=== PATIENT | male | born 1955 | race Caucasian/White ===

== ENCOUNTER → 2017-10-29 11:11 | Outpatient (CLI) | payer BC, SELFPAY ==
--- NOTE | 2017-10-29 | DI.US.S_ITS ---
PROCEDURE: US CAROTID DOPPLER BI INDICATIONS: CAROTID VASCULAR DISEASE TECHNIQUE: Color and pulse Doppler interrogation was performed of both carotid systems, with image documentation and velocity measurements. COMPARISON: None. FINDINGS: Stenosis calculations are based on SRU (Society of Radiologists in Ultrasound) criteria. Right side: Brachial blood pressure: 128/80 mm Hg. Common carotid artery peak systolic velocity: 70 cm/sec. Internal carotid artery peak systolic velocity: 63 cm/sec. Internal carotid artery end diastolic velocity: 16 cm/sec. External carotid artery peak systolic velocity: 109 cm/sec. ICA/CCA peak systolic ratio: 0.8 Ewing scale imaging description: Minimal plaque. Percent internal carotid artery stenosis: Less than 50%. Vertebral artery: Flow direction is antegrade. Left side: Brachial blood pressure: 130/84 mm Hg. Common carotid artery peak systolic velocity: 76 cm/sec. Internal carotid artery peak systolic velocity: 85 cm/sec. Internal carotid artery end diastolic velocity: 26 cm/sec. External carotid artery peak systolic velocity: 119 cm/sec. ICA/CCA peak systolic ratio: 1.1. Ewing scale imaging description: Moderate scattered plaque. Percent internal carotid artery stenosis: Less than 50%. Vertebral artery: Flow direction is antegrade. IMPRESSION: Less than 50% bilateral internal carotid artery stenosis. Dictated by: Driss Chang [facility] Interpreted: Savita Estrada MD on 10/29/2017 at 12:01 Approved by: Savita Estrada M.D. on 10/29/2017 at 14:16
== END ==
PROVIDERS: PCP Internal Medicine; Visit Provider Internal Medicine
DX: I99.8 Other disorder of circulatory system (principal)
CPT/HCPCS: 93880

== ENCOUNTER → 2018-08-28 09:24 | Outpatient (CLI) | payer BC, SELFPAY ==
[2018-08-28 10:26] LABS: Alanine Aminotransferase 52 IU/L (21-72); Albumin 4.5 g/dL (3.5-5.0); Albumin Globulin Ratio 1.6 (1.0-2.8); Alkaline Phosphatase 64 U/L (38-126); Aspartate Aminotransferase 35 IU/L (17-59); Bilirubin Total 0.9 mg/dL (0.2-1.3); Blood Urea Nitrogen 24 mg/dL (9-20); Calcium 9.7 mg/dL (8.4-10.2); Carbon Dioxide 27 mmol/L (22-32); Chloride 104 mmol/L (98-107); Cholesterol 122 mg/dL (140-199); Estimated Glomerular Filt Rate > 60.0 mL/min (>60); Globulin 2.8 g/dL (1.7-4.1); Glucose 101 mg/dL (80-110); HDL Cholesterol 49 mg/dL (40-60); HEMOLYSIS < 15 (0-50); LDL Cholesterol Calculated 57 mg/dL (<100); Potassium 4.4 mmol/L (3.4-5.1); Sodium 140 mmol/L (137-145); Total Protein 7.3 g/dL (6.3-8.2); Triglycerides 80 mg/dL (35-150)
== END ==
PROVIDERS: PCP Internal Medicine; Visit Provider Internal Medicine Cardiovascular Disease
DX: I25.118 Atherosclerotic heart disease of native coronary artery with other forms of angina pectoris (principal); E78.00 Pure hypercholesterolemia, unspecified
CPT/HCPCS: 36415; 80053; 80061

== ENCOUNTER 2019-06-24 08:53 | Day surgery (SDC) | payer OTHER, SELFPAY ==
[2019-06-24] VITALS (8 sets, daily range): BP systolic 110–131; BP diastolic 58–84; PULSE 58–69; RESP 10–16; TEMP 36.5–36.9; O2SAT 94–99; BMI 26.9
[2019-06-24] MEDS: SODIUM CHLORIDE 0.9% 1,000 ML 200 ML IV (09:33)
--- NOTE | 2019-06-24 10:09 | PM.HP.1 ---
History of Present Illness History of Present Illness Date Patient Seen: 06/24/19 Time Patient Seen: 10:09 Chief complaint: [id number] Narrative: The patient is a gentleman with a history of a colon resection for diverticulitis. He had a colonoscopy 5 years ago and polyps were removed. He is here for screening exam. Patient History Medical History (Updated 06/24/19 @ 10:10 by Christian Song MD) Diverticulitis (Acute) Enlarged prostate (Acute) Hernia (Acute) Surgical History H/O hernia repair (Acute) H/O partial resection of colon (Acute) Family & Social History Social History: household members spouse Meds Home Medications and Allergies Home Medications Medication Instructions Recorded Confirmed Type amlodipine 5 mg PO DAILY 06/24/19 06/24/19 History aspirin 81 mg PO DAILY 06/24/19 06/24/19 History atorvastatin 40 mg PO BEDTIME 06/24/19 06/24/19 History coenzyme Q10 [CoQ-10] 200 mg PO DAILY 06/24/19 06/24/19 History Allergies Allergy/AdvReac Type Severity Reaction Status Date / Time No Known Drug Allergies Allergy Verified 06/24/19 09:16 Review of Systems Review of Systems ROS Unobtainable: All systems reviewed & are unremarkable except as noted in HPI and below Cardiovascular Comments: Does have coronary artery disease of minor vessels. Had an angiogram. Main vessels are patent. No stents were placed. He is asymptomatic. Exam Vital Signs (past 8 hours): - 06/24/19 09:16 Temperature 97.8 F Pulse Rate 61 Respiratory Rate 15 Blood Pressure 131/84 Pulse Oximetry 99 Oxygen Delivery Method Room Air Narrative Exam Narrative: Pleasant cooperative patient no apparent distress. Lungs are clear to auscultation. No rales or rhonchi. Heart regular rate and rhythm no murmur gallop. Abdomen is soft nontender without mass. No obvious hernias. Patient is alert and oriented x3. Assessment & Plan Assessment & Plan narrative: The patient for a screening colonoscopy. I have discussed the procedure with them. Risks of bleeding, perforation which would necessitate major operation, failure to find remove all lesions, the potential tattoo were all discussed. All questions were answered. They wished to proceed.
--- NOTE | 2019-06-24 10:11 | PM.PREOP ---
Pre-operative Note Interval Note History & Physical reviewed/Exam performed by Physician: Yes Changes to H&P: No ASA Class (for procedural sedation): II
--- NOTE | 2019-06-24 10:21 | PM.PREOP ---
Pre-operative Note Interval Note History & Physical reviewed/Exam performed by Physician: Yes Changes to H&P: No ASA Class (for procedural sedation): II
[2019-06-24] MEDS: MIDAZOLAM 5 MG/5 ML VIAL IV (10:39)
--- NOTE | 2019-06-24 10:39 | PM.OP.ENDO ---
Operative Date/Time/Diagnoses Date of procedure: 06/24/19 Time of procedure: 10:39 Pre-op diagnosis: Screening exam. Last exam 5 5 years ago. History of polyps. Post-op diagnosis: same (Diverticulosis left colon) Procedure & Clinicians Study performed: Colonoscopy Same procedure as scheduled: Yes Indications: Screening Surgeon: Christian Song Procedure Notes SCOAP/Timeout: Perform Procedure in detail: The patient was placed in the left lateral decubitus position and underwent IV sedation directed by the surgeon consisting of fentanyl and Versed. Digital exam was remarkable for an enlarged prostate. The scope was inserted and advanced through the rectum into the sigmoid, descending, transverse, and ascending colon. Diverticulosis was noted in the area where the sigmoid would have been.. The cecum was reached identified by the ileocecal valve and the appendiceal opening. The ileocecal valve was successfully cannulated. The terminal ileum was normal in appearance. The scope was gradually brought out. No Polyps were found. The scope ultimately was retroflexed in the rectum. The appearance was normal. The scope was removed and the patient tolerated the procedure well. Prep was excellent. Anastomosis was noted at approximately 15 cm. Diverticuli were noted in the area of anastomosis as well as proximal to it. Chem or malfunction so no pictures were able to be taken Scope withdrawal time: 7 minutes Sedation minutes: 16 Findings: diverticulosis Specimen(s): none sent Post-procedure Recommendations: Colonscopy in 5 years (Due to history of polyps) Follow up: as needed Disposition: PACU
[2019-06-24] MEDS: fentaNYL 250 MCG/5 ML INJ IV (10:40)
[2019-06-24] MEDS: ONDANSETRON 4 MG/2 ML INJ IV (11:26)
--- NOTE | 2019-06-24 11:31 | SUR.PHASEII ---
Pt brought to opd, c/o nausea. Dr. Baldwin made aware, order obtained for ondansetron, med given. Mitul vasquez at bedside as well.
--- NOTE | 2019-06-24 12:18 | SUR.PHASEII ---
late entry: Pt no longer nauseated after med given. brought in, d/c instructions discussed, all voiced an understanding. P{t left when ready and left in stable condition.
== END 2019-06-24 12:10 | disposition home or self-care (01) ==
PROVIDERS: PCP Internal Medicine; Visit Provider Specialist
PROC: 0DJD8ZZ Inspection of Lower Intestinal Tract, Via Natural or Artificial Opening Endoscopic (ICD-10-PCS; CPT 45378; principal; 2019-06-24 09:45)
DX: Z12.11 Encounter for screening for malignant neoplasm of colon (principal); Z86.010 Personal history of colon polyps; K57.30 Diverticulosis of large intestine without perforation or abscess without bleeding; N40.0 Benign prostatic hyperplasia without lower urinary tract symptoms
CPT/HCPCS: 45378; 99152; J2250; J2405; J3010

== ENCOUNTER → 2019-10-21 09:13 | Outpatient (CLI) | payer OTHER, SELFPAY ==
[2019-10-21 10:44] LABS: Add Manual Diff / Slide Review NO; Basophils Absolute Auto 0 /uL (0-100); Basophils Percent Auto 0.6 % (0-2); Eosinophils Absolute Auto 100 /uL (0-450); Eosinophils Percent Auto 1.6 % (2-4); Hematocrit 42.7 % (41-53); Hemoglobin 15.1 g/dL (13.5-17.5); Lymphocytes Absolute Auto 1600 /uL (1100-4500); Lymphocytes Percent Auto 33.6 % (25-40); Mean Corpuscular HGB Conc 35.4 % (30-36); Mean Corpuscular Hemoglobin 32.2 PG (26-34); Mean Corpuscular Volume 91.1 fL (80-100); Monocytes Absolute Auto 400 /uL (0-900); Monocytes Percent Auto 9.1 % (3-14); Neutrophils Absolute Auto 2600 /uL (1500-7000); Neutrophils Percent Auto 55.1 % (50-75); Platelet Count 183 X10^3/uL (150-400); Red Blood Cell Count 4.69 X10^6/uL (4.5-5.9); Red Cell Distribution Width 12.7 % (11.6-14.8); White Blood Cell Count 4.8 X10^3/uL (4.5-11.0)
[2019-10-21 10:51] LABS: Alanine Aminotransferase 40 IU/L (<50); Albumin 4.8 g/dL (3.5-5.0); Albumin Globulin Ratio 1.8 (1.0-2.8); Alkaline Phosphatase 68 U/L (38-126); Aspartate Aminotransferase 47 IU/L (17-59); BUN Creatinine Ratio 22.6 (6-22); Bilirubin Total 1.2 mg/dL (0.2-1.3); Blood Urea Nitrogen 21 mg/dL (9-20); Calcium 10.1 mg/dL (8.4-10.2); Carbon Dioxide 25 mmol/L (22-32); Chloride 107 mmol/L (98-107); Cholesterol 140 mg/dL (140-199); Estimated Glomerular Filt Rate > 60.0 mL/min (>60); Globulin 2.7 g/dL (1.7-4.1); Glucose 105 mg/dL (80-110); HDL Cholesterol 56 mg/dL (40-60); HEMOLYSIS < 15 (0-50); LDL Cholesterol Calculated 67 mg/dL (<100); Potassium 4.7 mmol/L (3.4-5.1); Sodium 141 mmol/L (137-145); Total Protein 7.5 g/dL (6.3-8.2); Triglycerides 87 mg/dL (35-150)
== END ==
PROVIDERS: PCP Internal Medicine; Referring Provider Internal Medicine; Visit Provider Internal Medicine
DX: I10 Essential (primary) hypertension (principal); E78.00 Pure hypercholesterolemia, unspecified; N52.9 Male erectile dysfunction, unspecified
CPT/HCPCS: 36415; 80053; 80061; 85025

== ENCOUNTER → 2019-12-16 09:51 | Outpatient (CLI) | payer OTHER, SELFPAY ==
[2019-12-16 11:46] LABS: Cholesterol 202 mg/dL (140-199); HDL Cholesterol 47 mg/dL (40-60); LDL Cholesterol Calculated 126 mg/dL (<100); Triglycerides 145 mg/dL (35-150)
== END ==
PROVIDERS: PCP Internal Medicine; Referring Provider Internal Medicine; Visit Provider Internal Medicine
DX: I10 Essential (primary) hypertension (principal); E78.00 Pure hypercholesterolemia, unspecified; N52.9 Male erectile dysfunction, unspecified
CPT/HCPCS: 36415; 80061

== ENCOUNTER → 2020-02-14 12:16 | Outpatient (CLI) | payer OTHER, SELFPAY ==
--- NOTE | 2020-02-14 | DI.RAD.S_ITS ---
PROCEDURE: XR LUMBAR SPINE 2-3V INDICATIONS: LUMBAR DISK DISEASE TECHNIQUE: 2 views of the lumbar spine were acquired. COMPARISON: None. FINDINGS: Bones: 6 [id number] vertebrae are present. There is normal bony alignment. No acute vertebral body compression fractures. Multilevel lumbar spondylitic changes of the mid lower lumbar spine with degenerative endplate changes and mild facet arthropathy. No suspicious bony lesions. Soft tissues: Overlying bowel gas pattern is normal. No suspicious soft tissue calcifications. IMPRESSION: Lumbar spine without acute osseous abnormalities. Multilevel lumbar spondylosis. Dictated by: Clarke Bunch M.D. on 02/14/2020 at 18:05 Approved by: Clarke Bunch M.D. on 02/14/2020 at 18:07
== END ==
PROVIDERS: PCP Internal Medicine; Referring Provider Internal Medicine; Visit Provider Physician Assistant
DX: M51.9 Unspecified thoracic, thoracolumbar and lumbosacral intervertebral disc disorder (principal); M47.816 Spondylosis without myelopathy or radiculopathy, lumbar region
CPT/HCPCS: 72100

== ENCOUNTER → 2020-03-01 08:40 | Outpatient (CLI) | payer OTHER, SELFPAY ==
[2020-03-01 09:58] LABS: Cholesterol 176 mg/dL (140-199); HDL Cholesterol 55 mg/dL (40-60); LDL Cholesterol Calculated 98 mg/dL (<100); Triglycerides 116 mg/dL (35-150)
== END ==
PROVIDERS: PCP Internal Medicine; Referring Provider Internal Medicine; Visit Provider Internal Medicine
DX: I10 Essential (primary) hypertension (principal); E78.00 Pure hypercholesterolemia, unspecified; N52.9 Male erectile dysfunction, unspecified
CPT/HCPCS: 36415; 80061

== ENCOUNTER → 2020-03-13 13:02 | Outpatient (CLI) | payer OTHER, SELFPAY ==
--- NOTE | 2020-03-13 | DI.MRI.S_ITS ---
PROCEDURE: MR LUMBAR SPINE WO CON INDICATIONS: lumbosacral intervertebral disc disorder TECHNIQUE: Noncontrast sagittal T1 spin echo and T2 fast echo, sagittal STIR, axial T1 and T2 fast spin echo through the lumbar spine. In cases with scoliosis, additional coronal T2 fast spin echo may be performed. COMPARISON: None. FINDINGS: Image quality: Excellent. Alignment and Curvature: There is normal bony alignment. Bone Marrow: Multilevel degenerative endplate sclerosis and spurring. Diffuse facet arthropathy. No fracture Spinal Cord: Conus medullaris terminates at the L1-L2 level. Visualized cord demonstrates normal signal and size. Paraspinous Soft Tissues: No paravertebral masses. L1-L2: No canal or right foraminal stenosis. Mild left foraminal narrowing. L2-L3: Mild canal narrowing. Partial effacement of both lateral recesses with bilaterally symmetric appearance. Mild right foraminal narrowing. Mild to moderate left foraminal stenosis with questionable nerve root compression L3-L4: Minimal canal narrowing. Partial effacement of both lateral recesses with bilaterally symmetric appearance. Minimal right foraminal narrowing. Mild left foraminal stenosis with questionable nerve root compression L4-L5: Normal appearance. L5-S1: Normal appearance. IMPRESSION: Mild L2-L3 canal narrowing. Diffuse mild to moderate bilateral foraminal stenosis as detailed above. Dictated by: Efe Lee M.D. on 03/13/2020 at 14:28 Approved by: Efe Lee M.D. on 03/13/2020 at 14:33
== END ==
PROVIDERS: PCP Internal Medicine; Referring Provider Internal Medicine; Visit Provider Internal Medicine
DX: M51.9 Unspecified thoracic, thoracolumbar and lumbosacral intervertebral disc disorder (principal); M48.061 Spinal stenosis, lumbar region without neurogenic claudication
CPT/HCPCS: 72148

== ENCOUNTER → 2020-03-23 09:08 | Outpatient (CLI) | payer OTHER, SELFPAY ==
[2020-03-23 11:10] LABS: Testosterone 502 ng/dL (71.8-623)
== END ==
PROVIDERS: PCP Internal Medicine; Referring Provider Internal Medicine; Visit Provider Internal Medicine
DX: N52.8 Other male erectile dysfunction (principal)
CPT/HCPCS: 36415; 84403

== ENCOUNTER → 2020-07-07 12:19 | Outpatient (CLI) | payer OTHER, SELFPAY ==
[2020-07-07] MEDS: COVID-19 VACC #1, MRNA(MOD) 100 MCG/0.5 ML VIAL IM (12:29)
== END ==
PROVIDERS: PCP Internal Medicine; Visit Provider Internal Medicine
DX: Z23 Encounter for immunization (principal)
CPT/HCPCS: 0011A; 91301

== ENCOUNTER → 2020-08-04 12:53 | Outpatient (CLI) | payer MEDICARE, SELFPAY ==
[2020-08-04] MEDS: COVID-19 VACC #2, MRNA(MOD) 100 MCG/0.5 ML VIAL IM (13:05)
== END ==
PROVIDERS: PCP Internal Medicine; Visit Provider Internal Medicine
DX: Z23 Encounter for immunization (principal)
CPT/HCPCS: 0012A; 91301

== ENCOUNTER → 2021-11-19 06:45 | Outpatient (CLI) | payer MEDICARE, OTHER, SELFPAY ==
--- NOTE | 2021-11-19 06:49 | DI.ECHO.S_ITS ---
[place] +---------+ Hospital +---------+ : : [address] : : : : [id number] : : : : Phone: [phone]+ Echocardiogram Report + + :Name: MARIA G CHRIS Study Date: 11/19/2021 Height: 69 in : :[facility] ReadingLocation: Weight: 185 lb : : Gender: Male BSA: 2.0 m2 : :: 1955 Age: 66 yrs BP: 141/83 mmHg: :Reason For Study: CAD : :Ordering Physician: WILLIAM, : :GABRIELA Performed By: Khang Ruiz : :Referring: GABRIELA CARPENTER : + + Interpretation Summary 1) Normal left ventricular size and thickness with low normal systolic function (EF 50-55%). 2) Normal right ventricular size and function. 3) There is mild aortic regurgitation. 4) No prior Echo available for comparison. Procedure: A two-dimensional transthoracic echocardiogram with color flow and Doppler was performed. The study quality was technically adequate. There is no prior echocardiogram noted for this patient. The patient was in normal sinus rhythm during the exam. Left Ventricle: The left ventricle is normal in size and wall thickness. Left ventricular systolic function is low normal. The ejection fraction is estimated to be 50-55%. There are no focal wall motion abnormalities. Diastolic function could not be accurately assessed due to unobtainable data. Right Ventricle: The right ventricle is normal in size and function. Atria: Both atria are normal in size. The interatrial septum grossly appears intact with no obvious evidence for an atrial septal defect. Mitral Valve: The mitral valve is normal in structure and function. There is trace mitral regurgitation. Aortic Valve: The aortic valve is normal in structure and function. There is no aortic valve stenosis. There is mild aortic regurgitation. Tricuspid Valve: The tricuspid valve is normal in structure and function. There is a trace or physiologic amount of tricuspid regurgitation. Pulmonary artery pressures cannot be estimated because of the lack of a measurable TR jet velocity. Pulmonic Valve: The pulmonic valve is not well visualized. There is a trace or physiologic amount of pulmonic regurgitation. Great Vessels: The aortic root is normal size. The ascending aorta could not be visualized. The IVC is of normal diameter and collapses greater than 50% with a sniff. This suggests a low right atrial pressure of 3 mm Hg. Pericardium/ Pleura There is no pericardial effusion. There is no pleural effusion. MMode/2D Measurements & Calculations LVIDd: 5.4 cm LVOT diam: 2.3 cm LVIDs: 3.8 cm Ao root diam: 3.3 cm FS: 29.6 % IVSd: 0.90 cm LVPWd: 0.90 cm LV dockery. diameter/BSA (cm/m^2): 2.7 LV sys. diameter/BSA (cm/m^2): 1.9 LA dimension: 3.6 cm RA long axis: 5.3 cm LA A2 area: 21.2 cm2 LA A4 area: 17.9 cm2 LA length (vol): 5.5 cm LA vol: 58.8 ml LA vol index: 29.4 ml/m2 LVLs ap4: 7.6 cm LVLd ap2: 8.6 cm LVLs ap2: 7.8 cm TAPSE_phl: 3.1 cm Doppler Measurements & Calculations Ao V2 max: 121.0 cm/sec LVOT Max Alex: 79.0 cm/sec Ao V2 mean: 88.8 cm/sec LV V1 max P.5 mmHg Ao max P.0 mmHg LV V1 VTI: 17.9 cm Ao mean P.0 mmHg LYNN(I,D): 2.8 cm2 Ao V2 VTI: 26.9 cm LYNN(V,D): 2.7 cm2 sev ratio: 0.67 LYNN indexed to BSA (cm^2/m^2): 1.4 MV E max alex: 62.4 cm/sec SV(LVOT): 74.4 ml MV A max alex: 59.6 cm/sec MV E/A: 1.0 Med Peak E' Alex: 6.3 cm/sec E/E' med: 9.9 Lat Peak E' Alex: 9.7 cm/sec E/E' lat: 6.4 E/e' average: 8.2 MV dec time: 0.25 sec AV VR_phl: 0.65 MV P1/2t-pr_phl: 74.5 msec LYNN(VTI)/BSA_phl: 1.4 Reading Physician:11:31 AM
--- NOTE | 2021-11-19 06:49 | DI.US.S_ITS ---
PROCEDURE: US CAROTID DOPPLER BI INDICATIONS: CAD TECHNIQUE: Color and pulse Doppler interrogation was performed of both carotid systems, with image documentation and velocity measurements. COMPARISON: [facility], , US CAROTID DOPPLER BI, 10/29/2017, 11:35. FINDINGS: Stenosis calculations are based on SRU (Society of Radiologists in Ultrasound) criteria. The flow velocities and the arterial waveforms are normal within both carotid arterial systems. Atherosclerotic plaque is seen on both sides, left worse than right. The estimated degree of internal carotid artery stenosis is less than 50%. Antegrade flow is confirmed within both vertebral arteries. IMPRESSION: No hemodynamically significant stenosis is seen. Study similar to 2018. Dictated by: Merrill Middleton M.D. on 11/19/2021 at 8:23 Approved by: Merrill Middleton M.D. on 11/19/2021 at 8:24
== END ==
PROVIDERS: PCP Family Medicine; Referring Provider Internal Medicine Cardiovascular Disease; Visit Provider Internal Medicine Cardiovascular Disease
DX: I35.1 Nonrheumatic aortic (valve) insufficiency (principal); I25.10 Atherosclerotic heart disease of native coronary artery without angina pectoris
CPT/HCPCS: 93306; 93880

== ENCOUNTER → 2021-12-27 08:50 | Outpatient (CLI) | payer MEDICARE, OTHER, SELFPAY ==
[2021-12-27 11:07] LABS: Cholesterol 131 mg/dL (140-199); HDL Cholesterol 55 mg/dL (40-60); LDL Cholesterol Calculated 59 mg/dL (<100); Triglycerides 83 mg/dL (35-150)
== END ==
PROVIDERS: PCP Family Medicine; Referring Provider Internal Medicine Cardiovascular Disease; Visit Provider Internal Medicine Cardiovascular Disease
DX: E78.5 Hyperlipidemia, unspecified (principal)
CPT/HCPCS: 36415; 80061

== ENCOUNTER → 2022-08-26 15:15 | Outpatient (CLI) | payer MEDICARE, OTHER, SELFPAY ==
--- NOTE | 2022-08-26 | DI.RAD.S_ITS ---
PROCEDURE: XR LUMBAR SPINE 2-3V INDICATIONS: l/s spine pain TECHNIQUE: 3 views of the lumbar spine were acquired. COMPARISON: [facility], CR, XR LUMBAR SPINE 2-3V, 02/14/2020, 12:42. FINDINGS: Bones: Six [id number] vertebrae are present. There is stable bony alignment with minor asymmetric disc height loss at L3-4 and L4-5 with trace retrolisthesis. Mild endplate osteophytes. No vertebral body compression fractures. No suspicious bony lesions. Soft tissues: Overlying bowel gas pattern is normal. No suspicious soft tissue calcifications. IMPRESSION: 1. Stable mild spondylosis and listhesis at L3-4 and L4-5. 2. No significant acute changes compared to the prior study. Dictated by: Ely Riley M.D. on 08/27/2022 at 0:16 Approved by: Ely Riley M.D. on 08/27/2022 at 0:19
== END ==
PROVIDERS: PCP Family Medicine; Referring Provider Family Medicine; Visit Provider Family Medicine
DX: M47.816 Spondylosis without myelopathy or radiculopathy, lumbar region (principal); M43.16 Spondylolisthesis, lumbar region; M54.50 Low back pain, unspecified
CPT/HCPCS: 72100

== ENCOUNTER → 2022-12-16 07:18 | Outpatient (CLI) | payer MEDICARE, OTHER, SELFPAY ==
[2022-12-16 08:25] LABS: Creatine Kinase 294 U/L (55-170)
== END ==
PROVIDERS: PCP Family Medicine; Referring Provider Family Medicine; Visit Provider Family Medicine
DX: M79.10 Myalgia, unspecified site (principal)
CPT/HCPCS: 36415; 82550

== ENCOUNTER → 2023-01-01 07:01 | Outpatient (CLI) | payer MEDICARE, OTHER, SELFPAY ==
[2023-01-01 10:08] LABS: Add Manual Diff / Slide Review NO; Basophils Absolute Auto 0 /uL (0-100); Basophils Percent Auto 0.8 % (0-2); Eosinophils Absolute Auto 100 /uL (0-450); Eosinophils Percent Auto 2.1 % (2-4); Hemoglobin 14.7 g/dL (13.5-17.5); Lymphocytes Absolute Auto 2400 /uL (1100-4500); Mean Corpuscular Hemoglobin 31.8 PG (26-34); Mean Corpuscular Volume 90.9 fL (80-100); Monocytes Absolute Auto 400 /uL (0-900); Monocytes Percent Auto 8.5 % (3-14); Neutrophils Absolute Auto 2000 /uL (1500-7000); Neutrophils Percent Auto 40.6 % (50-75); Platelet Count 178 X10^3/uL (150-400); Red Blood Cell Count 4.62 X10^6/uL (4.5-5.9); Red Cell Distribution Width 12.9 % (11.6-14.8)
[2023-01-01 10:14] LABS: BUN Creatinine Ratio 24.7 (6-22); Blood Urea Nitrogen 24 mg/dL (9-20); Calcium 9.1 mg/dL (8.4-10.2); Carbon Dioxide 27 mmol/L (22-32); Chloride 104 mmol/L (98-107); Cholesterol 186 mg/dL (140-199); Estimated Glomerular Filt Rate > 60 mL/min (>60); Glucose 86 mg/dL (80-110); HDL Cholesterol 54 mg/dL (40-60); HEMOLYSIS 21 (0-50); LDL Cholesterol Calculated 110 mg/dL (<100); Potassium 4.7 mmol/L (3.4-5.1); Sodium 136 mmol/L (137-145); Triglycerides 112 mg/dL (35-150)
== END ==
PROVIDERS: PCP Family Medicine; Referring Provider Internal Medicine Cardiovascular Disease; Visit Provider Internal Medicine Cardiovascular Disease
DX: E78.5 Hyperlipidemia, unspecified (principal); I25.10 Atherosclerotic heart disease of native coronary artery without angina pectoris
CPT/HCPCS: 36415; 80048; 80061; 85025

== ENCOUNTER → 2024-04-20 11:03 | Outpatient (CLI) | payer MEDICARE, OTHER, SELFPAY ==
--- NOTE | 2024-04-20 11:06 | DI.RAD.S_ITS ---
PROCEDURE: XR CHEST 2V INDICATIONS: CHEST TIGHTNESS TECHNIQUE: 2 views of the chest were acquired. COMPARISON: None. FINDINGS: Surgical changes and devices: Cervical spinal fusion hardware is present. Lungs and pleura: Lungs are clear. No pleural effusions or pneumothorax. Mediastinum: Mediastinal contours are normal. Heart size is normal. Bones and chest wall: No suspicious bony abnormalities. Soft tissues appear unremarkable. IMPRESSION: No acute cardiopulmonary abnormality is seen. Approved by: Morris Hernandez M.D. on 04/21/2024 at 8:24
== END ==
LOC: RAD 11:05
PROVIDERS: PCP Family Medicine; Referring Provider Family Medicine; Visit Provider Family Medicine
DX: R07.89 Other chest pain (principal); Z98.1 Arthrodesis status
CPT/HCPCS: 71046

== ENCOUNTER → 2024-04-29 07:25 | Outpatient (CLI) | payer MEDICARE, OTHER, SELFPAY ==
--- NOTE | 2024-05-03 17:57 | DI.NM.S_ITS ---
DATE OF SERVICE: 04/30/2024 NUCLEAR CARDIOLOGY MYOCARDIAL PERFUSION STUDY PROCEDURE PERFORMED: Exercise treadmill stress and rest myocardial perfusion imaging with gating to assess ejection fraction and regional wall motion. ORDERING PROVIDER: Gideon Gonsalves MD INDICATIONS: The patient is a 68-year-old male with atypical, constant chest discomfort. CARDIAC STRESS: The patient was able to exercise for 12 minutes 1 second on a standard Isaias protocol suggesting excellent exercise capacity with an MARCO A of -47%, achieving 12.8 METS. He had a normal heart rate and blood pressure response to exercise, achieving a maximum heart rate of 153 BPM (101% of his predicted maximum close). He had no chest discomfort. His resting ECG shows sinus rhythm with occasional isolated PVCs and PACs and normal ST segments. With stress, there are no significant ST-segment shifts but increased ventricular ectopy with couplets, triplets, and occasional four-beat runs but no sustained arrhythmias. At 10 minutes 15 seconds of exercise at a heart rate of 135 BPM, 27.5 millicuries of technetium-99m Myoview was injected and he was imaged 15 minutes later using a gated SPECT acquisition protocol. Three days prior while at rest, he had been injected with 24.7 millicuries of technetium-99m Myoview and imaged 15 minutes later, again using a gated SPECT acquisition protocol. FINDINGS: 1. Raw data: There is fairly good myocardial tracer uptake. Unfortunately, the lung/heart ratio was unable to be calculated but there is no visual evidence of increased lung uptake. The TID ratio is normal at 1.04. 2. Quantitated gated SPECT: The post-stress ejection fraction is 54% with mild global hypokinesis but no focal wall motion abnormality. The resting ejection fraction is 49% with a similar contraction pattern and a moderately increased resting end-diastolic volume of 166 mL. 3. Myocardial perfusion imaging: Post-stress supine images show no concerning perfusion defects, supported by normal perfusion imaging in the prone position. The resting images show a similar perfusion pattern without any areas of improvement. IMPRESSION: 1. Normal myocardial perfusion study for ischemia. 2. No concerning perfusion defects to suggest myocardial ischemia or previous myocardial infarction. 3. Moderately increased left ventricular volumes with mild global hypokinesis but no focal wall motion abnormality. 4. Excellent exercise capacity without angina or ECG evidence of ischemia. He had mild ventricular ectopy at rest with increasing complex ectopy with stress with couplets, triplets, and occasional four- beat runs, but no sustained arrhythmia. Gideon Gruber - RS/jose roberto/SUE doc#: [id number]/job#: [id number] dd: 05/03/2024 17:34:00 dt: 05/03/2024 17:41:00 DICTATING MD/COPIES TO: Gideon Hannon MD; Gideon Gonsalves MD COPIES MNE: KALPESH;
== END ==
PROVIDERS: PCP Family Medicine; Referring Provider Family Medicine; Visit Provider Family Medicine
DX: I25.118 Atherosclerotic heart disease of native coronary artery with other forms of angina pectoris (principal); R07.89 Other chest pain
CPT/HCPCS: 78452; 93017; A9502

== ENCOUNTER → 2024-05-24 06:59 | Outpatient (CLI) | payer MEDICARE, OTHER, SELFPAY ==
--- NOTE | 2024-05-24 07:00 | DI.ECHO.S_ITS ---
[place] +---------+ Hospital : : [address] : : [id number] : : Phone: [phone] Echocardiogram Report + + :Name: MARIA G CHRIS Study Date: 05/24/2024 Height: 69 in : :[facility] ReadingLocation: Weight: 190 lb : : Gender: Male BSA: 2.0 m2 : :: 1955 Age: 68 yrs BP: 136/79 mmHg: :Reason For Study: SYSTOLIC HEART FAILURE : :Ordering Physician: JONNIE, : :MARIA G Performed By: Maury Moore : :Referring: MARIA G CRISTINA : + + Interpretation Summary The left ventricle is mildly dilated. The ejection fraction is estimated to be 40-45%. Grade I diastolic dysfunction. The left atrium is moderately dilated. The right ventricle is mildly dilated. The right ventricular systolic function is normal. The right atrium is mildly dilated. There is mild to moderate mitral regurgitation. There is mild aortic regurgitation. Pulmonary artery pressures cannot be estimated because of the lack of a measurable TR jet velocity but the IVC suggests a CVP of around 3 mmHg. Compared to the prior study dated 11/19/2021, the left ventricle is less dynamic. Procedure: A two-dimensional transthoracic echocardiogram with color flow and Doppler was performed. The study quality was technically good. Comparison is made with the echocardiogram of 11/19/2021. The patient was in normal sinus rhythm during the exam. Left Ventricle: There is normal left ventricular wall thickness. The left ventricle is mildly dilated. There is no ventricular septal defect visualized. The ejection fraction is estimated to be 40-45%. There is mild to moderate global hypokinesis of the left ventricle. Diastolic parameters suggest a relaxation abnormality of the left ventricle, consistent with probable normal filling pressures. Right Ventricle: The right ventricle is mildly dilated. The right ventricular systolic function is normal. Atria: The left atrium is moderately dilated. The right atrium is mildly dilated. There is no Doppler evidence for an atrial septal defect. Mitral Valve: The mitral valve leaflets appear mildly thickened, but open well. The mitral valve leaflets appear to open well. There is mild to moderate mitral regurgitation. Aortic Valve: The aortic valve is trileaflet. The aortic valve opens well. There is no aortic valve stenosis. There is mild aortic regurgitation. Tricuspid Valve: The tricuspid valve leaflets are thin and pliable. There is trace tricuspid regurgitation. Pulmonary artery pressures cannot be estimated because of the lack of a measurable TR jet velocity but the IVC suggests a CVP of around 3 mmHg. Pulmonic Valve: The pulmonic valve leaflets are thin and pliable; valve motion is normal. There is mild to moderate pulmonic regurgitation. Great Vessels: The aortic root is normal size. The dimensions of the ascending aorta are normal. The pulmonary artery is normal size. The IVC is of normal diameter and collapses greater than 50% with a sniff. This suggests a low right atrial pressure of 3 mm Hg. Pericardium/ Pleura There is no pericardial effusion. There is no pleural effusion. MMode/2D Measurements & Calculations LVIDd: 5.9 cm LVOT diam: 2.5 cm LVIDs: 4.5 cm Ao root diam: 3.5 cm FS: 23.3 % asc Aorta Diam: 3.5 cm EPSS: 1.1 cm Ao Arch Diam (Prox Trans): 2.4 cm IVSd: 0.80 cm LVPWd: 0.80 cm LV dockery. diameter/BSA (cm/m^2): 2.9 LV sys. diameter/BSA (cm/m^2): 2.2 LA A2 area: 24.0 cm2 RA long axis: 5.2 cm LA A4 area: 26.9 cm2 RA area: 21.8 cm2 LA length (vol): 6.1 cm RA vol: 77.9 ml LA vol: 89.3 ml RA : 38.6 ml/m2 LA vol index: 44.2 ml/m2 IVC diam: 1.7 cm RVD1 (basal): 4.4 cm RVD2 (mid): 3.4 cm TAPSE: 2.0 cm Doppler Measurements & Calculations Ao V2 max: 115.3 cm/sec LVOT Max Alex: 90.4 cm/sec Ao V2 mean: 80.8 cm/sec LV V1 max P.3 mmHg Ao max P.3 mmHg LV V1 VTI: 21.3 cm Ao mean P.9 mmHg LYNN(I,D): 4.1 cm2 Ao V2 VTI: 26.1 cm LYNN(V,D): 3.9 cm2 sev ratio: 0.82 LYNN indexed to BSA (cm^2/m^2): 2.0 AI P1/2t: 715.0 msec AI dec slope: 212.2 cm/sec2 MV E max alex: 47.2 cm/sec TR max alex: 261.3 cm/sec MV A max alex: 62.9 cm/sec TR max P.3 mmHg MV E/A: 0.75 PA V2 max: 59.2 cm/sec Med Peak E' Alex: 6.3 cm/sec PA V2 mean: 39.8 cm/sec E/E' med: 7.5 PA mean P.72 mmHg Lat Peak E' Alex: 6.2 cm/sec PA pr(Accel): 43.0 mmHg E/E' lat: 7.6 E/e' average: 7.6 MV dec time: 0.20 sec MR ERO: 0.08 cm2 MR PISA: 1.3 cm2 SV(LVOT): 106.2 ml MR flow rate: 48.8 cm3/sec MR PISA radius: 0.46 cm AV P1/2t-pr_phl: 784.9 msec Reading Physician:03:48 PM
== END ==
LOC: ECHO 06:59
PROVIDERS: PCP Family Medicine; Referring Provider Family Medicine; Visit Provider Family Medicine
DX: I08.0 Rheumatic disorders of both mitral and aortic valves (principal); I50.22 Chronic systolic (congestive) heart failure
CPT/HCPCS: 93306

== ENCOUNTER 2024-07-08 10:31 | Day surgery (SDC) | payer MEDICARE, OTHER, SELFPAY ==
--- NOTE | 2024-07-08 | PATH_ITS ---
[facility] Accession Number: [id number] No. of containers..01 Tissue . 01 Material submitted: . colon - ASCENDING COLON POLYPS . 01 Diagnosis: ASCENDING COLON POLYPS: Tubular adenoma x1. Colonic mucosa with promientn benign lymphoid aggregate x1. [facility] 07/12/2024 1039 Local . 01 Electronically signed: . Juan David Louis MD, PhD, Pathologist NPI- [id number] . 01 Gross description: . Received in formalin with two patient identifiers and ascending colon polyp, are two schulte soft tissue fragments, 0.6-1.4 cm in greatest dimension, submitted in A1. ([id number]) /MRV 07/09/2024 1735 Local . 01 Pathologist provided ICD-10: D12.2 . 01 CPT . 791788 Specimen Comment: A courtesy copy of this report has been sent to [phone] Performed at: [address] [facility] [address], [place], [place] [id number] MD Luis Antonio Smith MD Phone: [phone]
[2024-07-08 11:19] VITALS: BMI 26.7
[2024-07-08 11:28] VITALS: BP 135/77; PULSE 52; RESP 14; TEMP 36.2; O2SAT 97
[2024-07-08] MEDS: SODIUM CHLORIDE 0.9% 1,000 ML 84 ML IV (12:00)
--- NOTE | 2024-07-08 12:07 | P.HP_ITS ---
History of Present Illness History of Present Illness Date Patient Seen: 07/08/24 Time Patient Seen: 12:07 Chief complaint: Colonoscopy Narrative: Gideon is a 68-year-old man here for colonoscopy. He had a colonoscopy in 2019 with no polyps. He has had a partial colectomy for diverticulitis. He has had polyps removed in the past about 10 years ago. [facility] Medical History (Updated 07/08/24 @ 12:08 by Clay Lambert MD) Enlarged prostate Hernia Diverticulitis Surgical History H/O hernia repair H/O partial resection of colon Social History household members: spouse Smoking Status: Never smoker Meds Home Medications and Allergies Home Medications Medication Instructions Recorded Confirmed Type amlodipine 5 mg tablet 5 mg PO DAILY 06/24/19 06/24/19 History aspirin 81 mg chewable tablet 81 mg PO DAILY 06/24/19 06/24/19 History atorvastatin 40 mg tablet 40 mg PO BEDTIME 06/24/19 06/24/19 History coenzyme Q10 100 mg capsule 200 mg PO DAILY 06/24/19 06/24/19 History (CoQ-10) sodium sul 1.479 gram-potas ch See Rx Instructions PO PER PKG DIR 06/03/24 Rx 0.188 gram-magnes sul 0.225 gram #24 tabs tablet (Sutab) metoprolol succinate 25 mg 25 mg PO DAILY 07/08/24 07/08/24 History tablet,extended release 24 hr Allergies Allergy/AdvReac Type Severity Reaction Status Date / Time No Known Drug Allergies Allergy Verified 06/24/19 09:16 Exam Vital Signs (past 8 hours): - 07/08/24 11:28 Temperature 97.2 F L Pulse Rate 52 L Respiratory Rate 14 Blood Pressure 135/77 Pulse Oximetry 97 Oxygen Delivery Method Room Air Oxygen Delivery Method Room Air Const General: healthy appearing Resp Effort & Inspection: normal respiratory effort Assessment & Plan Assessment and plan (1) Colon cancer screening: Status: Acute Plan Colonoscopy Time-Based Coding :: [TOTAL MINUTES] spent with patient and on the chart (including review of chart, obtaining history, exam, reviewing outside data, placing orders, documenting exam and treatment plan, and counseling patient) on [DATE]. [employer] Document charge(s): No
--- NOTE | 2024-07-08 12:38 | PM.OP.COLON ---
Operative Date/Time/Diagnoses Date of procedure: 07/08/24 Time of procedure: 12:38 Pre-op diagnosis: History of polyps Post-op diagnosis: same Procedure & Clinicians Study performed: Colonoscopy Same procedure as scheduled: Yes Surgeon: Clay Lambert Procedure Notes Procedure in detail: Surgeon: Clay Lambert MD Anesthesia: Kiarra Escamilla MD Procedure: The patient was brought to the endoscopy suite, placed in left lateral decubitus position. The patient was connected to monitoring devices. A time-out was performed. Sedation was administered. Once the patient was adequately sedated, a digital rectal exam was performed and was normal. The scope was then inserted and advanced to the cecum where the appendiceal orifice was identified and photographed. The scope was then slowly withdrawn over greater than 6 minutes. The mucosa was thoroughly inspected. There were 2 small polyps in the ascending colon, both less than 5 mm, both removed with cold snare and sent together. The anastomosis was visualized in the upper rectum and appeared normal. The scope was retroflexed in the rectum. No other abnormalities were seen. The scope was straightened and removed. The patient was awakened and brought to recovery. Scope withdrawal time: 7 minutes Sedation time: 12 minutes EBL: 2 mL Findings: 2 small polyps in the ascending colon Post-procedure Disposition: PACU
[2024-07-08 12:41] VITALS: BP 104/41; PULSE 51; RESP 14; TEMP 36.4; O2SAT 100
[2024-07-08 12:46] VITALS: BP 105/56; PULSE 50; RESP 17; O2SAT 99
[2024-07-08 12:51] VITALS: BP 111/58; PULSE 61; RESP 15; O2SAT 99
[2024-07-08 13:01] VITALS: BP 118/63; PULSE 57; RESP 18; O2SAT 98
== END 2024-07-08 13:12 | disposition home or self-care (01) ==
PROVIDERS: PCP Family Medicine; Referring Provider Surgery; Visit Provider Surgery
PROC: 0DJD8ZZ Inspection of Lower Intestinal Tract, Via Natural or Artificial Opening Endoscopic (ICD-10-PCS; CPT 45378; principal; 2024-07-08 11:30)
DX: Z12.11 Encounter for screening for malignant neoplasm of colon (principal); D12.2 Benign neoplasm of ascending colon; Z86.0100 Personal history of colon polyps, unspecified; I10 Essential (primary) hypertension; Z90.49 Acquired absence of other specified parts of digestive tract
CPT/HCPCS: 45385; J2704